=== PATIENT | female | born 1980 | race American Indian/Alaskan Native ===

== ENCOUNTER 2017-10-21 23:07 | Emergency (ER) | payer SELFPAY ==
[2017-10-22] MEDS ORDERED: SOLU-Medrol IV ONE (00:01)
[2017-10-22] MEDS ORDERED: PEPCID IV ONE (00:01)
[2017-10-22] MEDS ORDERED: BENADRYL IV ONE (00:01)
--- NOTE | 2017-10-22 00:03 | Emergency Department Report ---
HPI - General Chief Complaint: Allergic Reaction Time Seen by Provider: 10/21/17 23:59 - HPI HPI: Patient is a 37-year-old female presenting status post taking his lisinopril have an allergic reaction. Patient states is new medication for. Patient feels as though her throat is tightening his physical shortness of breath. Patient took her first dose today. Patient denies any nausea vomiting syncope at this time. ED Past Medical Hx - Past Medical History Hx Hypertension: Yes - Surgical History Additional Surgical History: X1 - Social History Smoking Status: Current Every Day Smoker Substance Use Type: None - Medications Home Medications: Home Medications Medication Instructions Recorded Confirmed Last Taken Type Amlodipine Besylate [Norvasc] 5 mg PO DAILY #30 tablet 10/22/17 Unknown Rx Prednisone [predniSONE 5 mg (6-Day 5 mg PO .TAPER #1 tab.ds.pk 10/22/17 Unknown Rx Pack, 21 Tabs)] diphenhydrAMINE [Benadryl CAP] 25 mg PO Q6HR PRN #14 capsule 10/22/17 Unknown Rx traMADol [Ultram] 50 mg PO Q6HR PRN #10 tablet 10/22/17 Unknown Rx ED Review of Systems ROS: Stated complaint: ALLERGIC REACTION Other details as noted in HPI Comment: All other systems reviewed and negative Physical Exam - Physical Exam Vital Signs: Vital Signs 10/21/17 23:11 Temperature 98.2 F Pulse Rate 84 Respiratory 18 Rate Blood Pressure 200/115 O2 Sat by Pulse 100 Oximetry General: And is alert and oriented 3 and anxious. Physical Exam: HEENT exam shows a normal-appearing oropharynx. Patient's tongue is not swollen. Lung exam shows lungs clear to auscultation bilaterally. Cardiovascular exam shows normal heart tones. Skin exam shows no hives. Neuro exam shows patient is alert and oriented 3. ED Course Vital Signs 10/21/17 23:11 Temperature 98.2 F Pulse Rate 84 Respiratory 18 Rate Blood Pressure 200/115 O2 Sat by Pulse 100 Oximetry ED Medical Decision Making - Medical Decision Making She complained of some discomfort while swallowing. Rapid strep was performed which was negative. Patient will be switched to Norvasc for blood pressure control patient will be discharged home with meds for symptomatic relief from her allergic reaction. Critical Care Time: Yes (30) Critical care attestation.: If time is entered above; I have spent that time in minutes in the direct care of this critically ill patient, excluding procedure time. ED Disposition Clinical Impression: Hypertensive urgency Allergic reaction Qualifiers: Encounter type: initial encounter Qualified Code(s): T78.40XA - Allergy, unspecified, initial encounter Disposition: TO HOME OR SELFCARE Is pt being admited?: No Does the pt Need Aspirin: No Condition: Stable Instructions: Hypertension (ED), Allergies (ED) Prescriptions: Amlodipine Besylate [Norvasc] 5 mg PO DAILY #30 tablet diphenhydrAMINE [Benadryl CAP] 25 mg PO Q6HR PRN #14 capsule PRN Reason: Itching Prednisone [predniSONE 5 mg (6-Day Pack, 21 Tabs)] 5 mg PO .TAPER #1 tab.ds.pk traMADol [Ultram] 50 mg PO Q6HR PRN #10 tablet PRN Reason: Pain Time of Disposition: 01:51
[2017-10-22] MEDS ORDERED: NORCO 5/325 PO ONE (00:54)
[2017-10-22] MEDS ORDERED: CATAPRES PO ONE (00:54)
[2017-10-22 02:05] VITALS: BP 182/106
== END 2017-10-22 02:20 | disposition home or self-care (01) ==
LOC: ED 23:07
DX: T78.40XA Allergy, unspecified, initial encounter (principal); I16.0 Hypertensive urgency; I10 Essential (primary) hypertension; F17.200 Nicotine dependence, unspecified, uncomplicated; Z88.8 Allergy status to other drugs, medicaments and biological substances; X58.XXXA Exposure to other specified factors, initial encounter
CPT/HCPCS: 87116; 87430; 96374; 96375; 99291; J1200; J2930